=== PATIENT | male | born 1975 | race Caucasian/White ===

== ENCOUNTER 2017-02-04 15:54 | Emergency (ER) | payer BC ==
[2017-02-04 16:05] VITALS: RESP 16; O2SAT 96
[2017-02-04] MEDS ORDERED: TDAP Vaccine 0.5 mL Syr IM ONE (16:25)
[2017-02-04 16:46] LABS: BASO # 0.1 K/uL (0.0-0.2); BASO % 0.6 % (0.0-2.0); EOS # 0.2 K/uL (0.0-0.7); EOS % 1.8 % (0.0-4.0); HEMATOCRIT 41.6 % (35.0-51.0); LYMPH # 2.1 K/uL (1.0-4.3); LYMPH % 17.1 % (20.0-40.0); MEAN CELL VOLUME 85.1 fl (80.0-94.0); MEAN CORPUSCULAR HEMOGLOBIN 29.8 pg (27.0-31.0); MEAN PLATELET VOLUME 7.1 fl (7.2-11.7); MONO # 0.8 K/uL (0.0-0.8); MONO % 6.1 % (0.0-10.0); NEUT # 9.2 K/uL (1.8-7.0); NEUT % 74.4 % (50.0-75.0); WHITE BLOOD COUNT 12.4 K/uL (4.8-10.8)
[2017-02-04 16:56] LABS: ALB/GLOB RATIO 1.6 (1.0-2.1); ALKALINE PHOSPHATASE 84 U/L (38-126); ALT/SGPT 59 U/L (21-72); AST/SGOT 39 U/L (17-59); BILIRUBIN,TOTAL 0.8 mg/dl (0.2-1.3); BLOOD UREA NITROGEN 17 mg/dl (9-20); CALCIUM 9.4 mg/dL (8.4-10.2); CARBON DIOXIDE 26 mmol/L (22-30); CHLORIDE 104 mmol/L (98-107); GFR AFRICAN-AMERICAN > 60; GLUCOSE,RANDOM 111 mg/dL (75-110); POTASSIUM 3.4 MMOL/L (3.6-5.0); SODIUM 138 mmol/l (132-148)
[2017-02-04] MEDS ORDERED: Potassium Chloride 20 mEq ER Tab PO STA (17:08)
--- NOTE | 2017-02-04 17:22 | ED PDOC ---
Syncope/Near Syncope/Dizziness Time Seen by Provider: 02/04/17 16:08 Chief Complaint (Nursing): Syncope Chief Complaint (Provider): Syncope History Per: Patient Activity At Onset Of Symptoms: Sitting Associated Symptoms Preceding Syncopal Episode: Lightheadedness Fall Associated With With Symptoms: No Additional Complaint(s): Isak Jang, a 41 year old male, who has hypertension is in the ED today for syncope. The patient is the father of another patient who is in the ER for a broken leg. The patient reports that he sat down because he began feeling lightheaded after seeing his son hurt his leg. He fell face forward onto the ground and loss consciousness for a second. Patient is currently complaining of nose pain. Denies head ache, chest pain, palpitations, shortness of breath, visual changes, paresthesias or weakness. Past Medical History Reviewed: Historical Data, Nursing Documentation, Vital Signs Vital Signs: Last Vital Signs Temp 97.6 F 02/04/17 16:02 Pulse 91 H 02/04/17 16:02 Resp 16 02/04/17 16:02 BP 130/79 02/04/17 16:02 Pulse Ox 96 02/04/17 16:02 - Medical History PMH: HTN - Surgical History Surgical History: No Surg Hx - Family History Family History: States: Unknown Family Hx - Allergies Allergies/Adverse Reactions: Allergies Allergy/AdvReac Type Severity Reaction Status Date / Time No Known Allergies Allergy Verified 02/04/17 16:02 Review of Systems ROS Statement: Except As Marked, All Systems Reviewed And Found Negative Constitutional: Negative for: Weakness Eyes: Negative for: Vision Change Cardiovascular: Negative for: Chest Pain, Palpitations Respiratory: Negative for: Shortness of Breath Neurological: Positive for: Other (No paresthesias; loss of consciousness.). Negative for: Weakness, Headache Physical Exam - Reviewed Nursing Documentation Reviewed: Yes Vital Signs Reviewed: Yes - Physical Exam Appears: Positive for: Non-toxic, No Acute Distress Head Exam: Positive for: NORMAL INSPECTION (Superficial abrasion to forehead. ) Skin: Positive for: Normal Color, Warm, Dry Eye Exam: Positive for: Normal appearance, EOMI, PERRL ENT: Positive for: Normal ENT Inspection, Other (1cm superficial laceration to left nasal bridge; abrasion to right nasal bridge; edema and ecchymosis; No bleeding from nares.) Neck: Positive for: Normal (no cervical spine tenderness.), Painless ROM, Supple Cardiovascular/Chest: Positive for: Regular Rate, Rhythm, Chest Non Tender. Negative for: Tachycardia Respiratory: Positive for: Normal Breath Sounds. Negative for: Wheezing, Respiratory Distress Gastrointestinal/Abdominal: Positive for: Normal Exam, Bowel Sounds, Soft. Negative for: Tenderness, Guarding, Rebound Back: Positive for: Normal Inspection. Negative for: L CVA Tenderness, R CVA Tenderness Extremity: Positive for: Normal ROM, Other (Superficial abrasion left knee full ROM all limbs.). Negative for: Tenderness, Pedal Edema, Deformity, Swelling Neurologic/Psych: Positive for: Alert, Oriented, Gait - Laboratory Results Result Diagrams: 02/04/17 16:38 02/04/17 16:38 - ECG O2 Sat by Pulse Oximetry: 96 (RA) Pulse Ox Interpretation: Normal Medical Decision Making Medical Decision Makin Initial Impression: 41 year old male presenting with vasovagal syncope and facial injury Initial Plan: * CT Head w/o Contrast * CT Orbits/Facials * EKG * Comp Metabolic Panel * CBC * Boostrix 0.5ml IM * Potassium Chloride 20 meq PO * Reevaluation Laceration L nasal bridge closed with Dermabond. Scribe Attestation Documented by Alejandra Trinh acting as a scribe for Cathleen Karimi MD. Provider Attestation All medical record entries made by the Scribe were at my direction and personally dictated by me. I have reviewed the chart and agree that the record accurately reflects my personal performance of the history, physical exam, medical decision making, and the department course for this patient. I have also personally directed, reviewed, and agree with the discharge instructions and disposition. Disposition - Clinical Impression Clinical Impression: Syncope and collapse - Disposition Referrals: [facility] [Outside] Disposition: Transfer of Care Disposition Time: 19:00 Condition: STABLE Instructions: Syncope (ED), Head Injury (ED), Contusion in Adults (ED) Forms: [facility] (Macedonian) Patient Signed Over To: Nicolas Ash Handoff Comments: Pending CT.
[2017-02-04] MEDS ORDERED: Potassium Chloride 20 mEq ER Tab PO ONE (18:25)
--- NOTE | 2017-02-04 19:39 | ED PDOC ---
- Laboratory Results Result Diagrams: 02/04/17 16:38 02/04/17 16:38 - ECG O2 Sat by Pulse Oximetry: 96 (RA) Pulse Ox Interpretation: Normal Medical Decision Making Medical Decision Making: Patient signed out to provider at [address] temple pending CT's. 1942 CT Head Without Intravenous Contrast COMPARISON: No relevant prior studies available. FINDINGS: Brain: Unremarkable. No hemorrhage. No significant white matter disease. No edema. Ventricles: Unremarkable. No ventriculomegaly. Bones/joints: Unremarkable. No acute fracture. Soft tissues: Unremarkable. Sinuses: There is a 0.8 cm partially imaged right mucous retention cyst or polyp. Mastoid air cells: Unremarkable as visualized. No mastoid effusion. IMPRESSION: No acute findings 1941 CT Orbits Without Intravenous Contrast COMPARISON: No relevant prior studies available. FINDINGS: Orbits: Unremarkable. Sinuses: There are bilateral mucus retention cysts or polyps measuring up to 1.9 cm the left maxillary sinus and up to 2.3 cm in the right maxillary sinus. No air-fluid levels. Bones/joints: No acute fracture. Soft tissues: Unremarkable. IMPRESSION: No acute findings. 1941 Pt. feeling well, no neuro deficits, results explained. Told to f/u w/ PMD in CT. Return precautions discussed. Scribe Attestation Documented by Alejandra Trinh acting as a scribe for Nicolas Ash MD. Provider Attestation All medical record entries made by the Scribe were at my direction and personally dictated by me. I have reviewed the chart and agree that the record accurately reflects my personal performance of the history, physical exam, medical decision making, and the department course for this patient. I have also personally directed, reviewed, and agree with the discharge instructions and disposition. Disposition - Clinical Impression Clinical Impression: Syncope and collapse - POA Present On Arrival: None - Disposition Referrals: [facility] [Outside] Disposition: Routine/Home Disposition Time: 19:42 Condition: STABLE Instructions: Syncope (ED), Head Injury (ED), Contusion in Adults (ED) Forms: [employer] (Bengali)
[2017-02-04 20:47] VITALS: BP 127/73; PULSE 84; TEMP 97.9
--- NOTE | 2017-02-05 08:52 | CT ---
PROCEDURE: CT HEAD WITHOUT CONTRAST. HISTORY: Syncope, head injury COMPARISON: None available. TECHNIQUE: Axial computed tomography images were obtained through the head/brain without intravenous contrast. Radiation dose: Total exam DLP = 876 mGy-cm. This CT exam was performed using one or more of the following dose reduction techniques: Automated exposure control, adjustment of the mA and/or kV according to patient size, and/or use of iterative reconstruction technique. FINDINGS: HEMORRHAGE: No intracranial hemorrhage. BRAIN: No mass effect or edema. No atrophy or chronic microvascular ischemic changes. VENTRICLES: Unremarkable. No hydrocephalus. CALVARIUM: Unremarkable. PARANASAL SINUSES: Unremarkable as visualized. No significant inflammatory changes. MASTOID AIR CELLS: Unremarkable as visualized. No inflammatory changes. OTHER FINDINGS: None. IMPRESSION: Normal CT of the Head.
--- NOTE | 2017-02-05 08:54 | CT ---
PROCEDURE: CT ORBITS WITHOUT CONTRAST. HISTORY: Syncope COMPARISON: None available. TECHNIQUE: Axial CT images of the orbits were obtained. Coronal and sagittal reformats were generated. Radiation dose: Total exam DLP = 780 mGy-cm. This CT exam was performed using one or more of the following dose reduction techniques: Automated exposure control, adjustment of the mA and/or kV according to patient size, and/or use of iterative reconstruction technique. FINDINGS: RIGHT ORBIT: RIGHT BONY ORBIT: Normal. RIGHT INTRAORBITAL STRUCTURES: Globe: Normal. Extraocular muscles: Normal. Post septal space: Normal. Optic Nerve: Normal. Lacrimal Apparatus: Normal. RIGHT PRESEPTAL SOFT TISSUES: Normal. LEFT ORBIT: LEFT BONY ORBIT: Normal. LEFT INTRAORBITAL STRUCTURES: Globe: Normal. Extraocular muscles: Normal. Post septal space: Normal Optic Nerve: Normal. . Lacrimal Apparatus: Normal. LEFT PRESEPTAL SOFT TISSUES: Normal. OTHER: Bilateral maxillary sinus disease. IMPRESSION: No fracture.
--- NOTE | 2017-02-05 13:14 | CARD ---
APPROVED REPORT EKG Measurement Heart [id number] <Conclusion> Normal sinus rhythm Normal ECG
== END 2017-02-04 20:13 | disposition home or self-care (01) ==
LOC: H.ER 15:54
DX: R55 Syncope and collapse (principal); S09.93XA Unspecified injury of face, initial encounter; W19.XXXA Unspecified fall, initial encounter; Y92.89 Other specified places as the place of occurrence of the external cause; I10 Essential (primary) hypertension